=== PATIENT | female | born 1985 | race Caucasian/White ===

== ENCOUNTER 2017-08-05 07:28 | Inpatient (IN) | payer BC ==
[2017-08-05] MEDS ORDERED: Rocuronium 50 MG/5 ML Vial ONE (07:41)
[2017-08-05] MEDS ORDERED: Neostigmine Methylsulfate 1 MG/ML 5 ML Syringe ONE (07:41)
[2017-08-05] MEDS ORDERED: Succinylcholine 200 MG/10 ML MDV ONE (07:41)
[2017-08-05] MEDS ORDERED: Dexamethasone 4 MG/ML SDV ONE (07:41)
[2017-08-05] MEDS ORDERED: Propofol 200 MG/20 ML SDV ONE (07:41)
[2017-08-05] MEDS ORDERED: Ondansetron 4 MG/2 ML SDV ONE (07:41)
[2017-08-05] MEDS ORDERED: Glycopyrrolate 0.2 MG/ML 5 ML MDV ONE (07:41)
[2017-08-05] MEDS ORDERED: Acetaminophen 500 MG Tab PO ONE (07:45)
[2017-08-05] MEDS ORDERED: Gabapentin 300 MG Cap PO ONE (07:45)
[2017-08-05] MEDS ORDERED: Celecoxib 200 MG Cap PO ONE (07:45)
[2017-08-05] MEDS ORDERED: Scopolamine 1.5 MG Transdermal Patch TOP SCH (07:45)
[2017-08-05] MEDS ORDERED: cefOXitin 2 GM Vial ONE (08:09)
[2017-08-05] MEDS ORDERED: Dextrose 5%-Lactated Ringers 1,000 ML IV SCH (08:15)
[2017-08-05] MEDS ORDERED: Lactated Ringers 1,000 ML ONE (09:08)
[2017-08-05] MEDS ORDERED: Lidocaine 2% 100 MG/5 ML Syringe IVPUSH ONE (09:30)
[2017-08-05] MEDS ORDERED: cefOXitin 2 GM in Sodium Chloride 0.9% 50 ML IV ONE (09:30)
[2017-08-05] MEDS ORDERED: Lidocaine 0.4%/D5W 2 GM/500 ML BAG IV SCH (09:30)
[2017-08-05] MEDS ORDERED: Ketamine 500 MG/5 ML MDV IV ONE (09:30)
[2017-08-05] MEDS ORDERED: Ropivacaine 60 ML, Dexamethasone 8 MG, EPINEPHrine 0.4 MG, Sodium Chloride 0.9% 17.6 ML NERVRT ONE ×4 (09:30)
[2017-08-05] MEDS ORDERED: cefOXitin 2 GM in Premix Bag 1 BAG IV ONE (09:30)
[2017-08-05] MEDS ORDERED: fentaNYL 100 MCG/2 ML SDV ONE (09:48)
[2017-08-05] MEDS ORDERED: Labetalol 20 MG/4 ML Syringe ONE (09:49)
[2017-08-05] MEDS ORDERED: hydrOXYzine HCl 100 MG/2 ML SDV IM ONE (10:49)
[2017-08-05] MEDS ORDERED: diphenhydrAMINE 50 MG/ML SDV IVPUSH PRN (13:00)
[2017-08-05] MEDS ORDERED: hydrOXYzine HCl 100 MG/2 ML SDV IM PRN (13:00)
[2017-08-05] MEDS ORDERED: Ondansetron 4 MG/2 ML SDV IVPUSH PRN (13:00)
[2017-08-05] MEDS ORDERED: Labetalol 20 MG/4 ML Syringe IVPUSH PRN (13:00)
[2017-08-05] MEDS ORDERED: Metoclopramide 10 MG/2 ML SDV IVPUSH PRN (13:00)
[2017-08-05] MEDS: Gabapentin 250 MG/5 ML Solution ML 470 ML Bottle PO SCH ×2 (13:33→20:06)
[2017-08-05] MEDS: Pantoprazole 40 MG Vial IVPUSH SCH (13:33)
[2017-08-05] MEDS: cefOXitin 2 GM in Sodium Chloride 0.9% 50 ML IV SCH ×2 (13:33→20:06)
[2017-08-05] MEDS: Lidocaine 0.4%/D5W 2 GM/500 ML BAG IV SCH (13:40)
[2017-08-05] MEDS: SCOPOLAMINE PATCH CHECK TOP SCH (15:03)
[2017-08-05] MEDS: Acetaminophen Soln 650 MG/20.3 ML UD Cup PO SCH ×2 (15:03→20:06)
[2017-08-05] MEDS ORDERED: MVI, Adult with Vitamin K 10 ML, Thiamine 200 MG, Chromium/Copper/Mang/Selen/Zn 1 ML in... IV SCH ×4 (16:00)
[2017-08-05] MEDS: Heparin Sodium 5,000 Units/ML Vial SUBCUT SCH (17:39)
[2017-08-05] MEDS: Dextrose 5%-Lactated Ringers 1,000 ML IV SCH (21:32)
[2017-08-06] MEDS: Lidocaine 0.4%/D5W 2 GM/500 ML BAG IV SCH (02:03)
[2017-08-06] MEDS: Acetaminophen Soln 650 MG/20.3 ML UD Cup PO SCH ×5 (02:04→21:10)
[2017-08-06] MEDS: cefOXitin 2 GM in Sodium Chloride 0.9% 50 ML IV SCH (02:04)
[2017-08-06] MEDS ORDERED: Iohexol 647 MG/ML 50 ML SDV PO STA (02:28)
[2017-08-06] MEDS: Dextrose 5%-Lactated Ringers 1,000 ML IV SCH (03:53)
[2017-08-06] MEDS: Heparin Sodium 5,000 Units/ML Vial SUBCUT SCH ×3 (06:00→17:31)
[2017-08-06] MEDS: Celecoxib 200 MG Cap PO SCH ×2 (08:00→15:49)
--- NOTE | 2017-08-06 08:38 | CR ---
UGI wo KUB HISTORY: eval R -Y GBP FINDINGS: Limited upper GI series was obtained without fluoroscopy. Water-soluble contrast was admini stered orally. Immediate along with 15 minute delayed images were obtained. Small gastric pouch is de monstrated. Contrast passes readily through the gastrojejunostomy into loops of jejunum. No obstructi on is identified. There is no contrast extravasation. Surgical drain is noted left upper quadrant. IMPRESSION: No postoperative complication identified status post Joann-en-Y gastric bypass.
[2017-08-06] MEDS: Escitalopram 20 MG Tab PO SCH ×2 (09:00→15:49)
[2017-08-06] MEDS: Levothyroxine 50 MCG Tab PO SCH ×2 (09:00→15:49)
[2017-08-06] MEDS: Gabapentin 250 MG/5 ML Solution ML 470 ML Bottle PO SCH ×4 (09:00→21:11)
[2017-08-06] MEDS: Pantoprazole 40 MG Vial IVPUSH SCH ×2 (13:00→15:50)
[2017-08-06] MEDS ORDERED: Dextrose 5%-Lactated Ringers 1,000 ML IV SCH (14:30)
[2017-08-06] MEDS: SCOPOLAMINE PATCH CHECK TOP SCH (15:49)
[2017-08-06] MEDS: valACYclovir 1,000 MG Tab PO SCH (15:50)
[2017-08-06] MEDS ORDERED: MVI, Adult with Vitamin K 10 ML, Thiamine 200 MG, Chromium/Copper/Mang/Selen/Zn 1 ML in... IV SCH ×4 (16:00)
[2017-08-07] MEDS: Acetaminophen Soln 650 MG/20.3 ML UD Cup PO SCH ×2 (02:07→07:54)
[2017-08-07] MEDS: Heparin Sodium 5,000 Units/ML Vial SUBCUT SCH (05:53)
[2017-08-07] MEDS ORDERED: Ondansetron 4 MG Tab.DIS PO PRN (07:07)
[2017-08-07] MEDS: Celecoxib 200 MG Cap PO SCH (07:54)
[2017-08-07] MEDS: Levothyroxine 50 MCG Tab PO SCH (07:54)
--- NOTE | 2017-08-07 08:05 | DISCH ---
ADMISSION DIAGNOSES: 1. Morbid obesity. 2. Hypothyroidism. 3. History of adjustment disorder. DISCHARGE DIAGNOSES: Laparoscopic Joann-en-Y gastric bypass surgery, liver biopsy, repair of diaphragmatic hernia, excision of mediastinal lipoma for morbid obesity, hepatomegaly, diaphragmatic hernia and mediastinal lipoma on 08/05/2017. HISTORY: Ivette is a pleasant 31-year-old female with longstanding history of morbid obesity. After preoperative evaluation and discussion of possible risks and possible complications, she wished to proceed with surgical procedure. HOSPITAL COURSE: Ivette had her surgery on 08/05/2017. On postop day #1, her upper GI was normal and she was started on a step-2 gastric bypass diet with no cereal. On postop day #3, her activity was good. Pain was well managed. Vital signs stable. Activity good. She received adequate education for bariatric diet and she was ready to be discharged to home. PHYSICAL EXAMINATION: GENERAL: Ivette Hancock is a 31-year-old female. VITAL SIGNS: Height is 5 feet 4 inches. Weight is 324 pounds. BMI is 56. TPR 99.3, 93, 18. Blood pressure 119/66. HEENT: Negative. NECK: Supple. HEART: Regular rate and rhythm. LUNGS: Clear. ABDOMEN: Trocar incisions looked good. Sutures in place. SHELLY drain remains in, but will be removed prior to discharge. Abdominal binder has been on. There is a small quarter sized tape burn on the right side of her abdomen which she reports is painful. EXTREMITIES: Without peripheral edema. SCDs are on. DISPOSITION: Discharged to home. CONDITION: Stable and improving. FOLLOWUP: Followup appointment with Nataliia Johansen PA-C on 08/20/2017 at 10:15 a.m. at [place], [place]. HOME MEDICATIONS: 1. Tylenol 650 mg oral q.6 hours for 2 weeks. 2. Zofran ODT 4 mg q.4 hours p.r.n. pain #30. 3. Silvadene 1% cream use twice daily to tape burn left side of abdomen. 4. Celebrex 200 mg daily for 2 weeks. 5. Lexapro 20 mg oral daily. 6. Nexplanon 68 mg implant as directed. 7. Levothyroxine sodium 50 mcg oral daily. 8. Discontinue taking vitamins and supplements until first postop appointment. DISCHARGE DIET: Diet after discharge, step 2 gastric bypass diet with no cereal for 2 weeks. Drink 8 to 10 glasses of water a day. ACTIVITIES: No lifting over 10 pounds for 2 weeks. Driving, do not drive for 1 week. Shower/bathing, may shower. Notify provider if any fever, increased pain, nausea, or vomiting. Keep site clean and dry. Wear abdominal binder for 2 weeks and then as tolerated. Special instruction; use incentive spirometer 10 times every hour while awake for 2 weeks.
[2017-08-07] MEDS: valACYclovir 1,000 MG Tab PO SCH (08:16)
[2017-08-07] MEDS: Escitalopram 20 MG Tab PO SCH (08:16)
[2017-08-07] MEDS: SCOPOLAMINE PATCH CHECK TOP SCH (08:16)
[2017-08-07] MEDS: Gabapentin 250 MG/5 ML Solution ML 470 ML Bottle PO SCH (08:20)
[2017-08-07] MEDS ORDERED: Cyanocobalamin (Vitamin B12) 1,000 MCG/ML SDV IM ONE (09:00)
[2017-08-07] MEDS ORDERED: Silver Sulfadiazine 1% Crm 50 GM Tube TOP SCH (09:00)
--- NOTE | 2017-08-08 11:33 | PN ---
DATE OF SERVICE: 08/06/2017 The patient has been running some low-grade fevers and moderate degree of tachycardia overnight. This came up almost immediately postoperatively. So, I suspect this is a reaction to some medication or such. She otherwise looks clinically stable. Urine output has been good. She is up and moving. O2 sats on room air around 89%. So, she probably needs a little bit more work with regard to pulmonary toilet. Otherwise, her upper GI x-ray looked good. We will restart her usual oral medications today and go up to a step-2 diet, maximize activity and work with pulmonary toilet. Esvin Clement MD /[id number]
--- NOTE | 2017-08-08 12:02 | OR ---
DATE OF PROCEDURE: 08/05/2017 PREOPERATIVE DIAGNOSIS: Morbid obesity. POSTOPERATIVE DIAGNOSES: 1. Morbid obesity. 2. Marked hepatomegaly. 3. Paraesophageal diaphragmatic hernia. 4. Mediastinal lipoma. OPERATIVE PROCEDURES: 1. Laparoscopic Joann-en-Y gastric bypass with long limb gastroenterostomy (47735). 2. Jonnathan-Cut needle liver biopsy (58194). 3. Repair of paraesophageal diaphragmatic hernia (98391). 4. Excision of mediastinal lipoma (44894). ANESTHESIA: General. ACADEMIC ADVISOR: Nataliia Johansen PA-C. INDICATION FOR PROCEDURE: This is a 31-year-old female presenting with longstanding morbid obesity and increasingly significant comorbidities. After preoperative evaluation and discussion, she wished to proceed with a gastric bypass procedure. Potential risks of the procedure including bleeding, infection, leaks from various GI tract closures, problems with bowel obstruction over time as well as possibility of cardiopulmonary, septic, or hemorrhagic complications leading to were discussed, and the patient wishes to proceed. DETAILS OF PROCEDURE: The patient was taken to the operating room and placed in a supine position. After general endotracheal anesthesia was induced, she was converted to a lithotomy position. A gastrointestinal balloon catheter was then placed and the abdomen prepped and draped. At 15 cm inferior, 5 cm left of xiphoid process, transverse incision was made and the peritoneal cavity entered under direct vision with an Optiview trocar, inflated to 15 mmHg with pressure with CO2. Laparoscope was reinserted. No underlying trocar insertion site injuries were seen. At this point under direct vision in terms of the needle placement, bilateral subcostal transverse abdominis plane blocks were placed using standard solution and the remaining 5 trocars were then placed across the upper mid abdomen and general exploration was undertaken. The patient was noted to have a marked hepatomegaly with liver volume being roughly 2 to 3 times normal, liver grossly fatty infiltrated. Jonnathan-Cut needle biopsy was obtained from the left lobe of the liver. Minimal bleeding from the biopsy sites was controlled with electrocautery. At this point, the omentum was divided in the midline at the level of the transverse colon. This allowed identification of the small bowel to the ligament of Treitz. Small bowel was then traced out 200 cm distal to that point where it was divided transversely with the YULISA stapler. The small bowel was then traced out distally 150 cm where the uulp-uo-xzax enteroenterostomy was accomplished with internal firing of the Endo-YULISA 60 mm stapler. The common opening was then closed transversely with the same stapler and the angle was anastomosed, and mesenteric defect approximated with some 0 Ethibond stitch along with 4 mL of fibrin sealant. The divided end of the Joann limb was then from the mesentery for a few centimeters, which allowed an antecolic position of the Joann limb up to the level of the gastroesophageal junction without tension. At this point, the liver was retracted anteriorly and the patient was noted to have a moderate-sized paraesophageal diaphragmatic hernia containing tone of omentum along with some gastric fundus and perigastric fat. This was reduced and the peritoneum overlying the esophagogastric junction divided and the anterior repair of the diaphragmatic hernia was accomplished with 0 Ethibond stitch and reinforced with PTFE pledgets. During the course of the dissection, a roughly ping-pong ball sized mediastinal lipoma was encountered and excised to facilitate a more satisfactory closure of the diaphragmatic hernia. This was sent as a separate specimen. At this point, the gastrointestinal balloon catheter was inflated to 15 mL and pulled up snugly against the EG junction. The gastric wall over the apex balloon was then marked with electrocautery, and balloon catheter deflated and pulled up from the esophagus. The lesser omental tissue adjacent to gastric cardia was then incised allowing dissection behind the stomach at that level. Pouch formation was initiated with a transverse firing of the YULISA stapler at the level of the cauterized niels at the gastric cardia. The pouch was then completed with 3 additional firings of the YULISA stapler up to and through the angle of His. Upon completion of the pouch, both staple lines were noted to be intact. The anvil of a 25-mm EEA stapler was then attached to a [place] sump type tube. The latter was brought down through the mouth and a small opening in the gastric pouch allowing the anvil likewise to be pulled down to within the gastric pouch. The divided end of the Joann limb was then opened and the main body of the EEA stapler was passed several centimeters into the lumen of the small bowel, brought up the anvil and united with it, thus creating the gastrojejunostomy. Upon removal of the stapler, double donuts of mucosa were noted within it. The small bowel was closed off with a vascular staple line. Gastrojejunostomy was reinforced with some 3-0 Vicryl seromuscular stitch along with fibrin sealant. A leak test was accomplished with injection of 120 mL of air in the gastric pouch while submerged with cefoxitin-containing saline solution. No leaks were identified. One Leonard-Veloz drain was then placed through the left lateral trocar site and positioned adjacent to the gastrojejunostomy and from there up into the splenic fossa. No further problems noted. Trocars were removed and the peritoneal cavity was deflated. Incisions were closed with some 4-0 Vicryl skin stitch as was the drain affixed, and the patient was taken to the recovery room in satisfactory condition. Physician assistant speech language pathologist, Nataliia Johansen, played an essential role in assisting in this case, helping to position the patient, retract structures as needed, as well as suturing and cutting sutures as indicated. Her presence improved patient safety and decreased operative time. Esvin Clement MD /[id number]
== END 2017-08-07 10:15 | disposition home or self-care (01) | DRG 403 ==
LOC: JP.SDS 07:28 → JP.SDSSCHI 07:28 → JP.2SS 11:45 → EDSTATUS 12:30
PROVIDERS: ADMIT Surgery; ATTEND Surgery
PROC: 0D164ZA Bypass Stomach to Jejunum, Percutaneous Endoscopic Approach (ICD-10-PCS; principal; 2017-08-05)
PROC: 0FB24ZX Excision of Left Lobe Liver, Percutaneous Endoscopic Approach, Diagnostic (ICD-10-PCS; 2017-08-05)
PROC: 0BQT4ZZ Repair Diaphragm, Percutaneous Endoscopic Approach (ICD-10-PCS; 2017-08-05)
PROC: 0WBC4ZX Excision of Mediastinum, Percutaneous Endoscopic Approach, Diagnostic (ICD-10-PCS; 2017-08-05)
PROC: 3E0T3BZ Introduction of Anesthetic Agent into Peripheral Nerves and Plexi, Percutaneous Approach (ICD-10-PCS; 2017-08-05)
DX: E66.01 Morbid (severe) obesity due to excess calories (principal); Z68.43 Body mass index [BMI] 50.0-59.9, adult; R16.0 Hepatomegaly, not elsewhere classified; K44.9 Diaphragmatic hernia without obstruction or gangrene; D17.4 Benign lipomatous neoplasm of intrathoracic organs; K76.0 Fatty (change of) liver, not elsewhere classified; E03.9 Hypothyroidism, unspecified
CPT/HCPCS: 36415; 74240; 74240-26; 82962; 84443; 86850; 86900; 86901; 88304; 88307; 88313; A9270-GY; C9113; J0171; J0330; J0694; J1100; J1644; J2001; J2405; J2704; J2710; J2795; J3010; J3410; J3411; J3420; J7040; J7042; J7050; J7120; Q9967